=== PATIENT | male | born 1955 | race Two or more races ===

== ENCOUNTER 2021-09-14 03:38 | Emergency (ER) | payer OTHER ==
[~2021-09-14] VITALS: Ht 165.1 cm; Wt 85.7 kg
[2021-09-14] MEDS ORDERED: CHILDREN'S ASPI81 MG (04:02)
[2021-09-14] MEDS ORDERED: COZAAR25 MG (04:02)
[2021-09-14] MEDS ORDERED: OMEPRAZOLE20 MG (04:02)
[2021-09-14] MEDS ORDERED: TAMS0.4C (04:03)
[2021-09-14] MEDS ORDERED: ATORVASTATIN CA10 MG (04:03)
== END 2021-09-14 13:07 | disposition home or self-care (01) ==
LOC: ER 03:38
DX: K29.70 Gastritis, unspecified, without bleeding (principal); I10 Essential (primary) hypertension; K21.9 Gastro-esophageal reflux disease without esophagitis; Z79.82 Long term (current) use of aspirin; R11.10 Vomiting, unspecified